=== PATIENT | male | born 1960 | race Caucasian/White ===

== ENCOUNTER 2023-03-06 07:35 | Day surgery (SDC) | payer OTHER ==
[~2023-03-06 07:35] MED LIST: Midazolam 1 MG/ML 2 ML SDV ONE; Propofol 200 MG/20 ML SDV ONE; fentaNYL 50 MCG/ML SDV ONE
[2023-03-06] MEDS ORDERED: Sodium Chloride 0.9% 1,000 ML IV SCH (08:00)
== END 2023-03-06 10:55 | disposition home or self-care (01) ==
LOC: JP.SDS 07:35
PROVIDERS: ATTEND Surgery
DX: Z12.11 Encounter for screening for malignant neoplasm of colon (principal); K57.30 Diverticulosis of large intestine without perforation or abscess without bleeding; K21.9 Gastro-esophageal reflux disease without esophagitis; Z87.19 Personal history of other diseases of the digestive system
CPT/HCPCS: 45378; J2250; J2704; J3010; J7030

== ENCOUNTER 2023-09-24 07:55 | Day surgery (SDC) | payer OTHER ==
[2023-09-24 08:21] LABS: HEMATOCRIT 41.9 % (38.4-49.7); HEMOGLOBIN 14.4 g/dL (12.9-16.9); MEAN CORPUSCULAR HEMOGLOBIN 29.4 pg (31.6-35.5); MEAN CORPUSCULAR HGB CONC 34.4 g/dL (31.6-35.5); MEAN CORPUSCULAR VOLUME 85.5 fL (81.4-99.0); RED BLOOD CELL COUNT 4.9 M/uL (4.14-5.76); WHITE BLOOD CELL COUNT,WBC 6.8 K/uL (3.2-11.0)
[2023-09-24] MEDS ORDERED: Propofol 200 MG/20 ML SDV ONE ×5 (08:27→12:43)
[2023-09-24] MEDS ORDERED: Midazolam 1 MG/ML 2 ML SDV ONE ×2 (08:27→11:04)
[2023-09-24] MEDS ORDERED: fentaNYL 100 MCG/2 ML SDV ONE ×2 (08:27→11:20)
[2023-09-24] MEDS ORDERED: Bupivacaine 0.5% 30 ML SDV ONE ×2 (08:28→08:56)
[2023-09-24] MEDS ORDERED: Nozin Nasal Sanitizer NASBOTH ONE (08:45)
[2023-09-24] MEDS ORDERED: Lactated Ringers 1,000 ML IV SCH (09:00)
[2023-09-24 09:20] LABS: ALANINE AMINOTRANSFERASE,ALT 51 U/L (12-78); ALBUMIN 3.5 g/dL (3.4-5.0); ALKALINE PHOSPHATASE 56 U/L (46-116); ANION GAP 6.5 mmol/L (5.0-14.0); ASPARTATE AMNIOTRANSFERASE,AST 37 U/L (15-37); BILIRUBIN TOTAL 0.5 mg/dL (0.2-1.0); BLOOD UREA NITROGEN,BUN 11 mg/dL (7-18); CALCIUM 8.3 mg/dL (8.5-10.1); CARBON DIOXIDE,CO2 31 mmol/L (21-32); CHLORIDE,CL 105 mmol/L (100-108); CREATININE 0.8 mg/dL (0.8-1.3); EST CRCL DRUG DOSING (CG) 98.85 mL/min; ESTIMATED GFR 100 mL/min (>60); GLUCOSE RANDOM 94 mg/dL (74-106); SODIUM,NA 142 mmol/L (140-148)
[2023-09-24] MEDS ORDERED: ceFAZolin 2 GM in Premix Bag 1 BAG IV ONE (09:30)
[2023-09-24] MEDS ORDERED: ceFAZolin 2 GM in Sodium Chloride 0.9% 50 ML IV ONE (09:30)
[2023-09-24] MEDS ORDERED: ALPRAZolam 0.5 MG Tab PO PRN (13:49)
== END 2023-09-24 15:54 | disposition home or self-care (01) ==
LOC: JP.SDS 07:55
PROVIDERS: ATTEND Specialist
DX: M75.101 Unspecified rotator cuff tear or rupture of right shoulder, not specified as traumatic (principal); M75.41 Impingement syndrome of right shoulder
CPT/HCPCS: 29826; 29827; 36415; 80053; 85027; A9270; C1713; J0690; J2250; J2704; J3010; J3490; J7120